=== PATIENT | male | born 1965 | race Caucasian/White ===

== ENCOUNTER 2021-03-03 13:23 | Outpatient (RCR) | payer BC, SELFPAY ==
[2021-03-03 14:09] VITALS: BP 109/54; PULSE 59; RESP 18; TEMP 36.8; O2SAT 100
[2021-03-03] MEDS: FAMOTIDINE 20 MG TABLET PO (14:11)
[2021-03-03] MEDS: ACETAMINOPHEN 325 MG TABLET 650 MG PO (14:11)
[2021-03-03] MEDS: diphenhydrAMINE HCl CAP 25 MG CAPSULE PO (14:11)
--- NOTE | 2021-03-03 14:41 | PC.NURSE ---
Patient has not been vaccinated for COVID
[2021-03-03 15:59] VITALS: BP 109/59; PULSE 60; RESP 18; TEMP 36.8; O2SAT 99
--- NOTE | 2021-03-04 16:04 | PC.NURSE ---
Patient called to follow-up regarding COVID antibody infusion on 03/03/2021. Patient states he is feeling better and did not experience any side effects.
== END 2021-03-03 14:30 ==
LOC: AMCINF 13:23
PROVIDERS: PCP Family Medicine; Visit Provider Internal Medicine Hematology & Oncology
DX: Z23 Encounter for immunization (principal); U07.1 COVID-19; N18.9 Chronic kidney disease, unspecified
CPT/HCPCS: A9270; M0245; Q0245

== ENCOUNTER 2022-05-12 09:30 | Outpatient (CLI) | payer BC, SELFPAY ==
[2022-05-12 19:14] LABS: Kit Draw Collected
== END 2022-05-12 09:31 | disposition home or self-care (01) ==
LOC: ANHGOSHLAB 09:32
PROVIDERS: PCP Emergency Medicine; Visit Provider Emergency Medicine
DX: Z00.00 Encounter for general adult medical examination without abnormal findings (principal); M25.474 Effusion, right foot; Z12.5 Encounter for screening for malignant neoplasm of prostate
CPT/HCPCS: 36415

== ENCOUNTER 2023-07-06 09:45 | Outpatient (CLI) | payer BC, SELFPAY ==
--- NOTE | ~2023-07-06 | US_ITS ---
Limited Abdominal Sonogram: Real-time sonographic imaging of the right upper quadrant was performed. Clinical History: Gallstone Findings: The liver appears normal with no evidence of mass lesion or bile duct dilatation. Main por anson vein demonstrates normal direction of flow. The gallbladder is well distended, and contains echog enic, shadowing gallstones. No definite gallbladder wall thickening. The common bile duct measures 3 mm. The visualized pancreas, aorta, and IVC are unremarkable. Impression: Cholelithiasis. Reviewed, dictated and finalized at location M. Impression: Cholelithiasis.
--- NOTE | ~2023-07-06 | XR_ITS ---
EXAMINATION: [id number] DATE: 07/06/2023 10:35 INDICATION: Radiculopathy, cervical region. TECHNIQUE: 3 views of cervical spine were obtained. COMPARISON: None. FINDINGS: There is 8 degrees dextrocurvature of cervical spine. Vertebral body heights and interverte bral disc heights are normal. There are endplate osteophytes at multiple levels. There is multilevel mild to moderate facet joint osteoarthritis. No central canal stenosis or prevertebral soft tissue sw elling. IMPRESSION: 1. Mild cervical spondylosis. Reviewed, dictated and finalized at location A.
== END 2023-07-06 09:46 ==
PROVIDERS: PCP Emergency Medicine; Visit Provider Emergency Medicine
DX: M54.12 Radiculopathy, cervical region (principal); K80.20 Calculus of gallbladder without cholecystitis without obstruction; M43.02 Spondylolysis, cervical region
CPT/HCPCS: 72040; 76705

== ENCOUNTER 2023-11-27 11:04 | Emergency (ER) | payer BC, SELFPAY ==
--- NOTE | ~2023-11-27 | XR_ITS ---
Clinical Indication: Fever, cough PA and lateral views of the chest: Comparison: None Findings: Focal left upper lobe consolidation is compatible pneumonia. Right lung clear. Cardiomedia stinal silhouette is within normal limits. Bones and soft tissues are unremarkable. Impression: Left upper lobe pneumonia. Reviewed, dictated and finalized at location . Impression: Left upper lobe pneumonia.
[2023-11-27 12:01] VITALS: BP 147/72; PULSE 73; RESP 16; TEMP 37.2; O2SAT 99
--- NOTE | 2023-11-27 12:16 | ED.URI ---
HPI - URI/Sore Throat General Chief Complaint: Upper Respiratory Infection Stated Complaint: Flu like symptoms Time Seen by Provider: 11/27/23 12:16 Source: patient, RN notes reviewed and old records reviewed Mode of arrival: ambulatory Limitations: no limitations History of Present Illness HPI Narrative: patient presents with complaints productive cough, fever chills, sweats. Also has some nasal congestion. Has had body aches. He reports symptoms began 1 week ago. He states that he has been taking Tylenol and ibuprofen and this gave him relief for a few days, now he says all symptoms are getting worse. He does report some wheezing when lying down. He denies any chest pain or shortness of breath. Denies other complaints today Related Data Allergies Allergy/AdvReac Type Severity Reaction Status Date / Time No Known Allergies Allergy Verified 11/27/23 12:03 Review of Systems Review of Systems: All systems reviewed & are unremarkable except as noted in HPI and below Constitutional: Constitutional: Reports no additional constitutional complaints ENT: Reports system reviewed and no additional complaints, except as documented Cardiovascular: Cardiovascular: Reports no additional cardiovascular complaints Respiratory: Respiratory: Reports as per HPI, Reports no additional respiratory complaints, Reports chest congestion, Reports cough and Reports wheezing Gastrointestinal: Gastrointestinal: Reports no additional gastrointestinal complaints Musculoskeletal: Musculoskeletal: Reports as per HPI and Reports myalgias Neurologic: Reports system reviewed and no additional complaints, except as documented, Reports as per HPI and Reports headache(s) [facility], [facility] Family History Family History Mother Diabetes mellitus Father Throat cancer Cerebrovascular accident Social History Social History Smoking status: Never smoker Alcohol intake: current Drinks per week: 3 Substance use: never Substance use type: does not use Do You Feel Safe in your Home?: Yes Lack of Transportation: No Lack of Food: Never True Current Housing: I Have Housing Concerned About Future Housing: No Difficulty Paying Gas/Electric Bills: No Difficulty Paying for Meds: No Currently Unemployed: No Education: Bachelor's Degree Difficulty w/ Childcare or Family Care: No Gender identity (if verbalized by the patient): Male Spiritual care concerns: No Agree to blood products: Yes Exam Const: General: cooperative, no acute distress, alert and awake Orientation/consciousness: oriented to person, oriented to place and oriented to time HENMT: Head: normal to inspection Ears: TM's normal bilaterally Throat: posterior oropharynx normal Neck: Neck: no lymphadenopathy and no meningeal signs Resp: Effort & Inspection: normal respiratory effort and able to speak in complete sentences Auscultation: clear to auscultation bilaterally, no crackles, no rales, no rhonchi and no wheezes Cardio: Palpation: normal PMI Rate: regular rate Rhythm: regular rhythm Heart sounds: S1 normal heart sound present and S2 normal heart sound present Neuro: General: oriented to person, oriented to place and oriented to time Cranial nerves: Yes CN's II-XII intact bilaterally Psych: Appearance: grossly normal Thought process: Normal thought process present Insight: Good insight present (Psych) Judgement: Good judgement present (Psych) Course Course Level of Care: Express Care Visit Vital Signs Vital signs: Vital Signs Temperature 99 F 11/27/23 12:01 Pulse Rate 73 11/27/23 12:01 Respiratory Rate 16 11/27/23 12:01 Blood Pressure 147/72 H 11/27/23 12:01 Pulse Oximetry 99 11/27/23 12:01 Oxygen Delivery Room Air 11/27/23 12:01 Temperature 99 F 11/27/23 12:01 Pulse Rate 73 11/27/23 12:01 Respiratory Rate 1
[2023-11-27 12:20] LABS: EDINFLUASCREEN Negative; EDINFLUBSCREEN Negative
== END 2023-11-27 13:07 | disposition home or self-care (01) ==
PROVIDERS: Emergency Provider Nurse Practitioner Family; PCP Emergency Medicine
DX: R03.0 Elevated blood-pressure reading, without diagnosis of hypertension (principal); J18.1 Lobar pneumonia, unspecified organism; Z20.822 Contact with and (suspected) exposure to COVID-19
CPT/HCPCS: 71046; 87426; 87804; 99213; G0463